=== PATIENT | female | born 1990 | race African-American/Black ===

== ENCOUNTER 2022-10-25 16:03 | Emergency (ER) | payer OTHER, MEDICAID, SELFPAY ==
[2022-10-25 16:22] VITALS: BP 136/90; PULSE 77; RESP 22; TEMP 36.1; O2SAT 100; BMI 39.7
--- NOTE | 2022-10-25 18:15 | ED_ITS ---
HPI - Back Pain/Injury General Time Seen by Provider: 18:15 Date Seen: 10/25/22 Chief Complaint: Back Injury/Pain Stated Complaint: Upper back pain Time Seen by Provider: 10/25/22 17:43 Source: patient and RN notes reviewed Mode of arrival: ambulatory Limitations: no limitations History of Present Illness HPI Narrative: Patient is a 32-year-old female coming in with an episode of upper back pain. 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 It was very sharp and intense. It hurt to move but not necessarily with breathing. It has improved somewhat since then but still hurts to move. She denies any injury. About a month ago she fell over a baby gate and had some back pain from that but that was in her low back. She was evaluated for that at [facility], did get put on Robaxin. She states she weaned herself off of that, took her last dose on Tuesday. She has never had pain in her upper back before. No trauma with this. She wonders if there is something wrong with the nerves in her back. I reviewed with her that it is unlikely to be a pinched nerve in her upper back at this point or significant neurologic trauma given that there is not a major mechanism here. Discussed relative rest and modalities such as physical therapy that might be helpful. We did also review that I typically do not use Robaxin but do recommend a muscle relaxant for her given her history, would recommend a different 1 which she is comfortable with. MD elicited complaint: back pain Related Data Home Medications Medication Instructions Recorded Confirmed escitalopram oxalate 20 mg tablet 20 mg PO DAILY 10/25/22 10/25/22 (Lexapro) phentermine 10/25/22 trazadone 10/25/22 Previous Rx's Medication Instructions Recorded cyclobenzaprine 10 mg tablet 10 mg PO TID PRN muscle spasm #15 10/25/22 tabs ketorolac 10 mg tablet 10 mg PO Q6H PRN pain 5 days #20 10/25/22 tabs Allergies Allergy/AdvReac Type Severity Reaction Status Date / Time No Known Drug Allergies Allergy Verified 10/25/22 16:29 Review of Systems Narrative: As per HPI. Exam Const: Vital Signs, click to edit/add: Vital Signs - 24 hr 10/25/22 16:22 Temperature 96.9 F L Pulse Rate [Pulse Oximeter] 77 Respiratory Rate 22 Blood Pressure [Ri ght Upper Arm] 136/90 H Pulse Oximetry 100 Oxygen Delivery Me thod Room Air Documenting provider has reviewed patient's vital signs: yes Common normals: no apparent distress, average body habitus, oriented x3, no limitations, healthy appearing, alert and well nourished General appearance: cooperative, comfortable, well kempt and well developed Other: Very pleasant 32-year-old female sitting up on the edge of the exam bed in exam room 3. HENMT: Common normals: normocephalic and head/scalp atraumatic Head and scalp: normocephalic and atraumatic Eye: Common normals: PERRL, EOMs intact bilaterally, conjunctivae normal and no scleral icterus Conjunctiva: conjunctiva(e) normal Pupil: PERRL Neck & C-Spine: Common normals: full ROM, no lymphadenopathy and supple Resp: Common normals: normal respiratory effort, no retractions, no use of accessory muscles and clear to auscultation bilaterally Effort & inspection: able to speak in complete sentences Auscultation: clear to auscultation bilaterally Cardio: Common normals: regular rate, regular rhythm, S1 normal heart sound, S2 normal heart sound, no gallops, no clicks and no murmurs Rate: regular rate Rhythm: regular rhythm Heart sounds: S1 normal and S2 normal Back & Pelvis: Other: Complains of pain him mid thoracic area down the lumbar spine, states pain is going throughout her back. There is bilateral paraspinous tenderness in the interscapular area. Is able to ambulate, arms are mobile. Neurovascular i ntact. There is no palpable muscle spasm. Pain reaction seems to be a bit out of proportion to exam at this time. Neuro: Common normals: oriented x3 Sensorium/orientation: alert Psych: Appearance: well kempt Course Course Hospital Course: Given the circumstances as to when the pain started, do not believe the mechanism supports any imaging. Reviewed with her that I do think this is probably more muscular and spasm in nature. Would favor a brief period of observation and then further follow-up if not responding to conservative management. She is in agreement with this. I will write her note to be off work for the next couple days, will start her on some cyclobenzaprine and some Toradol orally. She has an IUD in for contraception. Vital Signs Vital signs: Initial Vital Signs Temperature 96.9 F L 10/25/22 16:22 Temperature Source Temporal Artery Scan 10/25/22 16:22 Pulse Rate 77 10/25/22 16:22 Respiratory Rate 22 10/25/22 16:22 Blood Pressure 136/90 H 10/25/22 16:22 Blood Pressure Mean 105 10/25/22 16:22 Blood Pressure Position Supine 10/25/22 16:22 Pulse Oximetry 100 10/25/22 16:22 Oxygen Delivery Method Room Air 10/25/22 16:22 Vital Signs Temperature 96.9 F L 10/25/22 16:22 Pulse Rate 77 10/25/22 16:22 Respiratory Rate 22 10/25/22 16:22 Blood Pressure 136/90 H 10/25/22 16:22 Pulse Oximetry 100 10/25/22 16:22 Oxygen Delivery Method Room Air 10/25/22 16:22 Temperature 96.9 F L 10/25/22 16:22 Pulse Rate 77 10/25/22 16:22 Respiratory Rate 22 10/25/22 16:22 Blood Pressure 136/90 H 10/25/22 16:22 Pulse Oximetry 100 10/25/22 16:22 Oxygen Delivery Method Room Air 10/25/22 16:22 Discharge Plan Discharge Clinical Impression: Acute bilateral thoracic back pain Patient Disposition: Home, Self-Care Condition: Stable Instructions: Back Pain (ED) Additional Instructions: Use ice initially on your back where it is painful. Use Toradol per prescription instructions. Can also use Tylenol 1000 mg 3 times a day. Can use the cyclobenzaprine which is a muscle relaxant per prescription, no driving or operating machinery while on this as it can be sedating. Recommend follow-up in your primary clinic if you are not improving or have ongoing concerns with your current symptoms. Have provided a note to be off work for the next couple of days. Activity Level: Activity as Tolerated Prescriptions: New ketorolac 10 mg tablet 10 mg PO Q6H PRN (Reason: pain) 5 Days Qty: 20 0RF cyclobenzaprine 10 mg tablet 10 mg PO TID PRN (Reason: muscle spasm) Qty: 15 0RF No Action escitalopram oxalate [Lexapro] 20 mg tablet 20 mg PO DAILY phentermine trazadone Stand Alone Forms: [employer] Info Instructions
== END 2022-10-25 18:58 | disposition home or self-care (01) ==
LOC: ED 18:39
PROVIDERS: Emergency Provider Family Medicine
DX: M54.6 Pain in thoracic spine (principal)
CPT/HCPCS: 99283